=== PATIENT | female | born 1970 | race African-American/Black ===

== ENCOUNTER 2017-09-14 10:58 | Inpatient (IN) | payer OTHER ==
[2017-09-14 11:30] VITALS: BMI 23.0
--- NOTE | 2017-09-14 13:28 | HP ---
CIWA Score - CIWA Score Nausea/Vomitin Muscle Tremors: 3 Anxiety: 4-Mod. Anxious/Guarded Agitation: 0-Normal Activity Paroxysmal Sweats: No Perspiration Orientation: 0-Oriented Tacttile Disturbances: 3-Moderate Itch/Numb/Burn Auditory Disturbances: 2-Mild Harshness/Frighten Visual Disturbances: 2-Mild Sensitivity Headache: 0-None Present CIWA-Ar Total Score: 19 Admission ROS [facility] - HPI Chief Complaint: "I want to get my life together and have a better quality of life." Patient is here to Detox from Alcohol. Allergies/Adverse Reactions: Allergies Allergy/AdvReac Type Severity Reaction Status Date / Time No Known Allergies Allergy Verified 09/14/17 12:53 History of Present Illness: Patient is a 47 YO female here to Detox from Alcohol. This is patient's first Detox admission at [facility]. Patient has had a Detox admission at [facility] @ 2012. Longest Period of Sobriety in recent years: approx. 3 years (2012 - 2015). Exam Limitations: No Limitations - Ebola screening Have you traveled outside of the country in the last 21 days: No Have you had contact with anyone from an Ebola affected area: No Have you been sick,other than usual withdrawal symptoms: No Do you have a fever: No - Review of Systems Constitutional: Chills, Loss of Appetite, Malaise, Night Sweats, Changes in sleep, Unintentional Wgt. Loss (Approx. 10 lbs over last few months.) EENT: reports: Nose Congestion, Sinus Pressure Respiratory: reports: No Symptoms reported Cardiac: reports: Palpitations GI: reports: Diarrhea, Nausea, Poor Appetite, Vomiting, Indigestion (Heartburn, Occurs Rarely.), Abdominal cramping : reports: No Symptoms Reported Musculoskeletal: reports: Back Pain, Joint Pain, Joint Stiffness Integumentary: reports: No Symptoms Reported Neuro: reports: Numbness (Bilateral Feet, Bilateral Hands.), Tingling ( Bilateral Feet, Bilateral Hands.), Tremors Endocrine: reports: No Symptoms Reported Hematology: reports: Anemia (Iron-Deficiency type. No current meds.) Psychiatric: reports: Judgement Intact, Mood/Affect Appropiate, Orientated x3, Anxious, Depressed (No meds.) Other Systems: Reviewed and Negative Patient History - Patient Medical History Hx Anemia: Yes (Iron-Deficiency type; No current meds.) Hx Asthma: Yes (as a child) Hx Chronic Obstructive Pulmonary Disease (COPD): No Hx Cancer: No Hx Cardiac Disorders: No Hx Congestive Heart Failure: No Hx Hypertension: No (In past, not currently.) Hx Hypercholesterolemia: No Hx Pacemaker: No HX Cerebrovascular Accident: No Hx Seizures: No Hx Dementia: No Hx Diabetes: No Hx Gastrointestinal Disorders: Yes (History of Intestinal Polyps, History of Diverticulosis.) Hx Liver Disease: No Hx Genitourinary Disorders: No Hx Sexually Transmitted Disorders: No Hx Renal Disease (ESRD): No Hx Thyroid Disease: No Hx Human Immunodeficiency Virus (HIV): No (Negative History.) Hx Hepatitis C: No (Negative History.) Hx Depression: Yes (and Anxiety; No meds.) Hx Suicide Attempt: No (PATIENT DENIES CURRENT SI / HI.) Hx Bipolar Disorder: No Hx Schizophrenia: No Other Medical History: Sciatica (Left Side); Neuropathy, bialteral hands, feet, due to ETOH use. - Patient Surgical History Past Surgical History: No Hx Neurologic Surgery: No Hx Cataract Extraction: No Hx Cardiac Surgery: No Hx Lung Surgery: No Hx Breast Surgery: No Hx Breast Biopsy: No Hx Abdominal Surgery: No Hx Appendectomy: No Hx Cholecystectomy: No Hx Genitourinary Surgery: No Hx Section: No Hx Orthopedic Surgery: No Other Surgical History: DENIES. Anesthesia Reaction: No - PPD History Previous Implant?: Yes Documented Results: Negative w/o proof Implanted On Prior R Admission?: No PPD to be Administered?: Yes - Reproductive History Patient is a Female of Child Bearing Age (11 -55 yrs old): Yes Last Menstrual Period: 08/16/17 Patient : No - Smoking Cessation Smoking history: Current every day smoker Have you smoked in the past 12 months: Yes Aproximately how many cigarettes per day: 5 Cigars Per Day: 0 Hx Chewing Tobacco Use: No Initiated information on smoking cessation: Yes 'Breaking Loose' booklet given: 09/14/17 (GIVEN TO PATIENT.) - Substance & Tx. History Hx Alcohol Use: Yes Hx Substance Use: Yes Substance Use Type: Alcohol Hx Substance Use Treatment: Yes (Detox at [facility] ([place] @ 2013.) - Substances Abused Alcohol-whisky/beer Route: Oral Frequency: Daily Amount used: fifth/3 (22 oz.) Age of first use: 16 Date of Last Use: 09/14/17 Family Disease History - Family Disease History Family Disease History: Heart Disease: Grandparent (HTN; Thoracic Ca.), Father ( History of Aneurysms; HTN), Mother (HTN.), CA: Grandparent, Other: Father Admission Physical Exam [facility] - Vital Signs Vital Signs: Vital Signs - 24 hr 09/14/17 11:23 Temperature 98.1 F Pulse Rate 82 Respiratory 18 Rate Blood Pressure 133/89 - Physical General Appearance: Yes: No Apparent Distress, Nourished, Appropriately Dressed , Tremorous, Anxious, Other (Patient Ambulates with a Cane.) HEENTM: Yes: Hearing grossly Normal, Normocephalic, Normal Voice, ALEX, Pharynx Normal Respiratory: Yes: Chest Non-Tender, Lungs Clear, No Respiratory Distress, No Accessory Muscle Use Neck: Yes: No masses,lesions,Nodules, Supple, Trachea in good position Breast: Yes: Breast Exam Deferred Cardiology: Yes: Regular Rhythm, Regular Rate, S1, S2 Abdominal: Yes: Normal Bowel Sounds, Non Tender, Flat, Soft Genitourinary: Yes: Within Normal Limits Back: Yes: Decreased Range of Motion Musculoskeletal: Yes: Back pain, Joint Stiffness Extremities: Yes: Tremors Neurological: Yes: Fully Oriented, Alert, Normal Mood/Affect, Normal Response Integumentary: Yes: Normal Color, Dry, Warm Lymphatic: Yes: Within Normal Limits - Diagnostic (1) Alcohol dependence with uncomplicated withdrawal Current Visit: Yes Status: Acute (2) Nicotine dependence Current Visit: Yes Status: Chronic Qualifiers: Nicotine product type: cigarettes Substance use status: uncomplicated Qualified Code(s): F17.210 - Nicotine dependence, cigarettes, uncomplicated (3) Use of cane as ambulatory aid Current Visit: Yes Status: Chronic (4) History of iron deficiency anemia Current Visit: Yes Status: Suspected (5) History of hypertension Current Visit: Yes Status: Suspected (6) Neuropathy of both feet Current Visit: Yes Status: Chronic (7) Neuropathy of left hand Current Visit: Yes Status: Chronic (8) Neuropathy of right hand Current Visit: Yes Status: Chronic (9) Anxiety and depression Current Visit: Yes Status: Suspected Cleared for Admission [facility] - Detox or Rehab [facility] Level of Care: Medically Managed Detox Regimen/Protocol: Librium [facility] Breath Alcohol Content Breath Alcohol Content: 0 Urine Pregancy Test - Result Urine Test Results: Negative- NO Line Present Urine Drug Screen - Results Drug Screen Negative: Yes
[2017-09-14] MEDS ORDERED: MENTHOL/PHENOL 1 EACH UD MM PRN (13:55)
[2017-09-14] MEDS ORDERED: guaiFENesin/D-METHORPHAN HB 10 ML UNIT-DOSE CUPS PO PRN (13:55)
[2017-09-14] MEDS ORDERED: IBUPROFEN 400 MG TABLET (FP) PO PRN (13:55)
[2017-09-14] MEDS ORDERED: P-EPHED 60MG/TRIPROLIDI 2.5MG TABLET PO PRN (13:55)
[2017-09-14] MEDS ORDERED: MAG HYDROX/AL HYDROX/SIMETH 30 ML UNIT-DOSE CUP PO PRN (13:55)
[2017-09-14] MEDS ORDERED: LOPERAMIDE HCL 2 MG CAPSULE PO PRN (13:55)
[2017-09-14] MEDS ORDERED: chlordiazePOXIDE HCL 25 MG CAPSULE PO PRN (13:55)
[2017-09-14] MEDS ORDERED: MAGNESIUM HYDROX 2400MG/30ML ORAL SUSPENSION 30 ML CUP PO PRN (13:55)
[2017-09-14] MEDS ORDERED: MAGNESIUM CITRATE 300 ML BOTTLE PO PRN (13:55)
[2017-09-14] MEDS ORDERED: chlordiazePOXIDE HCL 25 MG CAPSULE PO ONE (15:00)
[2017-09-14] MEDS: chlordiazePOXIDE HCL 25 MG CAPSULE PO SCH ×2 (17:32→22:11)
[2017-09-14 18:18] LABS: HEMATOCRIT 38.2 % (32.4-45.2); HEMOGLOBIN 12.2 GM/dL (10.7-15.3); MCH 24.6 pg (25.7-33.7); MCHC 31.9 g/dl (32.0-36.0); MEAN CELL VOLUME 77.2 fl (80-96); MEAN PLT VOLUME 9.4 fl (7.5-11.1); PLATELET COUNT 204 K/MM3 (134-434); RBC 4.95 M/mm3 (3.60-5.2); RDW 13.4 % (11.6-15.6); WHITE BLOOD COUNT 5.2 K/mm3 (4.0-10.0)
[2017-09-14 18:52] LABS: ALBUMIN 3.9 g/dl (3.4-5.0); ANION GAP 4 (8-16); BLOOD UREA NITROGEN 9 mg/dL (7-18); CALCIUM 8.9 mg/dL (8.5-10.1); CHLORIDE 106 mmol/L (98-107); CO2 30 mmol/L (21-32); CREATININE 0.5 mg/dL (0.55-1.02); GLUCOSE,RANDOM 78 mg/dL (74-106); POTASSIUM 3.7 mmol/L (3.5-5.1); SGOT/AST 20 U/L (15-37); SGPT/ALT 19 U/L (12-78); SODIUM 140 mmol/L (136-145)
[2017-09-14 18:54] LABS: ALK PHOS 42 U/L (45-117); BILIRUBIN,TOTAL 0.4 mg/dL (0.2-1.0); TOT PROT 7.3 g/dl (6.4-8.2)
[2017-09-14] MEDS ORDERED: MELATONIN 5 MG TABLETS PO PRN (22:00)
[2017-09-14] MEDS: THIAMINE HCL 100 MG TABLET (FP) PO SCH (22:11)
[2017-09-15] MEDS: chlordiazePOXIDE HCL 25 MG CAPSULE PO SCH ×4 (05:23→22:23)
[2017-09-15] MEDS: PRENATAL VITAMINS W/ FOLIC ACID TABLET (FP) PO SCH (10:35)
--- NOTE | 2017-09-15 13:59 | PN ---
[facility] CIWA - CIWA Score Nausea/Vomitin Muscle Tremors: 2 Anxiety: 2 Agitation: 2 Paroxysmal Sweats: 2 Orientation: 0-Oriented Tacttile Disturbances: 1-Very Mild Itch/Numbness Auditory Disturbances: 1-Very Mild Visual Disturbances: 0-None Headache: 2-Mild CIWA-Ar Total Score: 14 [facility] Progress Note (SOAP) Subjective: Low back pain,drowsy and abdominal discomfort Objective: 09/15/17 13:59 Vital Signs - 8 hr 09/15/17 09/15/17 06:26 10:00 Temperature 98.4 F 97.9 F Pulse Rate 78 92 H Respiratory 18 18 Rate Blood Pressure 110/76 133/89 Laboratory Last Values WBC 5.2 K/mm3 (4.0-10.0) 09/14/17 12:00 RBC 4.95 M/mm3 (3.60-5.2) 09/14/17 12:00 Hgb 12.2 GM/dL (10.7-15.3) 09/14/17 12:00 Hct 38.2 % (32.4-45.2) 09/14/17 12:00 MCV 77.2 fl (80-96) L 09/14/17 12:00 MCH 24.6 pg (25.7-33.7) L 09/14/17 12:00 MCHC 31.9 g/dl (32.0-36.0) L 09/14/17 12:00 RDW 13.4 % (11.6-15.6) 09/14/17 12:00 Plt Count 204 K/MM3 (134-434) 09/14/17 12:00 MPV 9.4 fl (7.5-11.1) 09/14/17 12:00 Sodium 140 mmol/L (136-145) 09/14/17 12:00 Potassium 3.7 mmol/L (3.5-5.1) 09/14/17 12:00 Chloride 106 mmol/L (98-107) 09/14/17 12:00 Carbon Dioxide 30 mmol/L (21-32) 09/14/17 12:00 Anion Gap 4 (8-16) L 09/14/17 12:00 BUN 9 mg/dL (7-18) 09/14/17 12:00 Creatinine 0.5 mg/dL (0.55-1.02) L 09/14/17 12:00 Creat Clearance w eGFR > 60 (>60) 09/14/17 12:00 Random Glucose 78 mg/dL (74-106) 09/14/17 12:00 Calcium 8.9 mg/dL (8.5-10.1) 09/14/17 12:00 Total Bilirubin 0.4 mg/dL (0.2-1.0) 09/14/17 12:00 AST 20 U/L (15-37) 09/14/17 12:00 ALT 19 U/L (12-78) 09/14/17 12:00 Alkaline Phosphatase 42 U/L (45-117) L 09/14/17 12:00 Total Protein 7.3 g/dl (6.4-8.2) 09/14/17 12:00 Albumin 3.9 g/dl (3.4-5.0) 09/14/17 12:00 RPR Titer Nonreactive (NONREACTIVE) 09/14/17 12:00 Labs noted Assessment: 09/15/17 13:59 Withdrawal sx Plan: Continue detox
--- NOTE | 2017-09-15 14:40 | EKG ---
Test Reason : Blood Pressure : / mmHG Vent. Rate : 074 BPM Atrial Rate : 074 BPM P-R Int : 184 ms QRS Dur : 086 ms QT Int : 386 ms P-R-T Axes : 076 077 057 degrees QTc Int : 428 ms NORMAL SINUS RHYTHM POSSIBLE LEFT ATRIAL ENLARGEMENT BORDERLINE ECG NO PREVIOUS ECGS AVAILABLE Confirmed by MD Juvenal, Damien ([id number]) on 09/15/2017 2:39:54 PM Referred By: Confirmed By:Damien Sanford MD
[2017-09-15] MEDS: ACETAMINOPHEN 325 MG TABLET (FP) PO PRN (17:27)
[2017-09-15] MEDS: THIAMINE HCL 100 MG TABLET (FP) PO SCH (22:23)
[2017-09-16] MEDS: chlordiazePOXIDE HCL 25 MG CAPSULE PO SCH ×2 (05:58→10:24)
[2017-09-16] MEDS: PRENATAL VITAMINS W/ FOLIC ACID TABLET (FP) PO SCH (10:24)
--- NOTE | 2017-09-16 16:06 | PN ---
S CIWA - CIWA Score Nausea/Vomitin Muscle Tremors: 4-Moderate,w/Arms Extend Anxiety: 4-Mod. Anxious/Guarded Agitation: 4-Moderately Restless Paroxysmal Sweats: 3 Orientation: 0-Oriented Tacttile Disturbances: 1-Very Mild Itch/Numbness Auditory Disturbances: 0-None Visual Disturbances: 0-None Headache: 1-Very Mild CIWA-Ar Total Score: 20 [facility] Progress Note (SOAP) Subjective: Nausea, chills, sweating, oversleeping, requesting more food or ensure stating she is always hungry. Patient is requesting sturdier walker. Objective: 09/16/17 16:04 Last Vital Signs Temp Pulse Resp BP Pulse Ox 99.7 F H 101 H 18 148/93 09/16/17 13:18 09/16/17 13:18 09/16/17 13:18 09/16/17 13:18 Laboratory Tests 09/14/17 09/14/17 09/14/17 12:00 12:00 12:00 WBC 5.2 RBC 4.95 Hgb 12.2 Hct 38.2 MCV 77.2 L MCH 24.6 L MCHC 31.9 L RDW 13.4 Plt Count 204 MPV 9.4 Sodium 140 Potassium 3.7 Chloride 106 Carbon Dioxide 30 Anion Gap 4 L BUN 9 Creatinine 0.5 L Creat Clearance w eGFR > 60 Random Glucose 78 Calcium 8.9 Total Bilirubin 0.4 AST 20 ALT 19 Alkaline Phosphatase 42 L Total Protein 7.3 Albumin 3.9 RPR Titer Nonreactive Labs noted Assessment: 09/16/17 16:04 Withdrawal symptoms Plan: Continue detox Encouraged PO hydration (water), ensure 1 cup PO bid due to increased hunger
[2017-09-16] MEDS: chlordiazePOXIDE 5 MG CAPSULE PO SCH ×2 (17:37→22:16)
[2017-09-16] MEDS: ACETAMINOPHEN 325 MG TABLET (FP) PO PRN (22:16)
[2017-09-16] MEDS: THIAMINE HCL 100 MG TABLET (FP) PO SCH (22:16)
[2017-09-17] MEDS: chlordiazePOXIDE 5 MG CAPSULE PO SCH ×2 (06:04→10:41)
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
[2017-09-17] MEDS: PRENATAL VITAMINS W/ FOLIC ACID TABLET (FP) PO SCH (10:41)
[2017-09-17] MEDS: chlordiazePOXIDE HCL 10 MG CAPSULE PO SCH ×2 (18:24→22:15)
[2017-09-17] MEDS: THIAMINE HCL 100 MG TABLET (FP) PO SCH (22:14)
[2017-09-18] MEDS: chlordiazePOXIDE HCL 10 MG CAPSULE PO SCH ×2 (05:53→10:41)
--- NOTE | 2017-09-18 08:43 | DS ---
[facility] Detox Discharge Summary Admission Date: 09/14/17 Discharge Date: 09/18/17 - History Present History: Alcohol Dependence Additional Comments: 47 years old female admitted on 09/14/17 for alcohol withdrawal sx completed detox regimen tolerated well denies alcohol withdrawal sx acknowledged aftercare [facility] toward sobriety - Physical Exam Results Vital Signs: Vital Signs Temperature 98.1 F 09/18/17 06:08 Pulse Rate 78 09/18/17 06:08 Respiratory Rate 18 09/18/17 06:08 Blood Pressure 135/88 09/18/17 06:08 O2 Sat by Pulse Oximetry (%) Pertinent Admission Physical Exam Findings: withdrawal sx Vital Signs Temperature 98.1 F 09/18/17 06:08 Pulse Rate 78 09/18/17 06:08 Respiratory Rate 18 09/18/17 06:08 Blood Pressure 135/88 09/18/17 06:08 O2 Sat by Pulse Oximetry (%) Laboratory Last Values WBC 5.2 K/mm3 (4.0-10.0) 09/14/17 12:00 RBC 4.95 M/mm3 (3.60-5.2) 09/14/17 12:00 Hgb 12.2 GM/dL (10.7-15.3) 09/14/17 12:00 Hct 38.2 % (32.4-45.2) 09/14/17 12:00 MCV 77.2 fl (80-96) L 09/14/17 12:00 MCH 24.6 pg (25.7-33.7) L 09/14/17 12:00 MCHC 31.9 g/dl (32.0-36.0) L 09/14/17 12:00 RDW 13.4 % (11.6-15.6) 09/14/17 12:00 Plt Count 204 K/MM3 (134-434) 09/14/17 12:00 MPV 9.4 fl (7.5-11.1) 09/14/17 12:00 Sodium 140 mmol/L (136-145) 09/14/17 12:00 Potassium 3.7 mmol/L (3.5-5.1) 09/14/17 12:00 Chloride 106 mmol/L (98-107) 09/14/17 12:00 Carbon Dioxide 30 mmol/L (21-32) 09/14/17 12:00 Anion Gap 4 (8-16) L 09/14/17 12:00 BUN 9 mg/dL (7-18) 09/14/17 12:00 Creatinine 0.5 mg/dL (0.55-1.02) L 09/14/17 12:00 Creat Clearance w eGFR > 60 (>60) 09/14/17 12:00 Random Glucose 78 mg/dL (74-106) 09/14/17 12:00 Calcium 8.9 mg/dL (8.5-10.1) 09/14/17 12:00 Total Bilirubin 0.4 mg/dL (0.2-1.0) 09/14/17 12:00 AST 20 U/L (15-37) 09/14/17 12:00 ALT 19 U/L (12-78) 09/14/17 12:00 Alkaline Phosphatase 42 U/L (45-117) L 09/14/17 12:00 Total Protein 7.3 g/dl (6.4-8.2) 09/14/17 12:00 Albumin 3.9 g/dl (3.4-5.0) 09/14/17 12:00 RPR Titer Nonreactive (NONREACTIVE) 09/14/17 12:00 lab noted - Treatment Hospital Course: Detox Protocol Followed, Detoxed Safely, Responded well, Discharged Condition Good, Rehab Referral Accepted Patient has Accepted a Rehab Referral to[facility] - Medication Discharge Medications: Ambulatory Orders NK [No Known Home Medication] 09/14/17 - Diagnosis (1) Alcohol dependence with uncomplicated withdrawal Current Visit: Yes Status: Acute (2) Nicotine dependence Current Visit: Yes Status: Acute Qualifiers: Nicotine product type: cigarettes Substance use status: in withdrawal Qualified Code(s): F17.213 - Nicotine dependence, cigarettes, with withdrawal (3) Use of cane as ambulatory aid Current Visit: No Status: Chronic (4) History of hypertension Current Visit: Yes Status: Chronic - AMA Did Patient Leave Against Medical Advice: No
[2017-09-18] MEDS: PRENATAL VITAMINS W/ FOLIC ACID TABLET (FP) PO SCH (10:41)
[2017-09-18 14:08] VITALS: BP 134/75; PULSE 94; TEMP 99.3
[2017-09-18 15:02] LABS: URINE APPEARANCE CLOUDY; URINE BILIRUBIN NEGATIVE (<2.0 mg/dL); URINE COLOR LTYELLOW; URINE GLUCOSE (UA) NEGATIVE (NEGATIVE); URINE KETONE NEGATIVE (NEGATIVE); URINE NITRITE NEGATIVE (NEGATIVE); URINE PROTEIN NEGATIVE (NEGATIVE); URINE UROBILINOGEN NEGATIVE mg/dL (0.2-1.0)
[2017-09-18 15:04] LABS: URINE LEUK ESTERASE 1+ (NEGATIVE)
[2017-09-18 15:08] LABS: EPI CELLS RARE /HPF (FEW); URINE BACTERIA MANY /hpf (NONE SEEN); URINE MUCUS RARE
== END 2017-09-18 14:25 | disposition other institution (70) | DRG 775 ==
LOC: YASAS 10:58 → Y6N 14:05
PROVIDERS: ADMIT Surgery; ATTEND Surgery
PROC: HZ2ZZZZ Detoxification Services for Substance Abuse Treatment (ICD-10-PCS; principal; 2017-09-14)
DX: F10.230 Alcohol dependence with withdrawal, uncomplicated (principal); F17.213 Nicotine dependence, cigarettes, with withdrawal; F41.8 Other specified anxiety disorders; G62.9 Polyneuropathy, unspecified; R26.2 Difficulty in walking, not elsewhere classified; Z99.89 Dependence on other enabling machines and devices
CPT/HCPCS: 36415; 72220-TC-FY; 80053; 81003; 81015; 85027; 86593; 93005; 93010

== ENCOUNTER 2017-09-18 13:31 | Inpatient (IN) | payer OTHER ==
[2017-09-18 14:58] VITALS: BMI 23.5
[2017-09-18] MEDS ORDERED: MAGNESIUM CITRATE 300 ML BOTTLE PO PRN (15:04)
[2017-09-18] MEDS ORDERED: hydrOXYzine PAMOATE 50 MG CAPSULE (FP) PO PRN (15:04)
[2017-09-18] MEDS ORDERED: guaiFENesin/D-METHORPHAN HB 10 ML UNIT-DOSE CUPS PO PRN (15:04)
[2017-09-18] MEDS ORDERED: IBUPROFEN 400 MG TABLET (FP) PO PRN (15:04)
[2017-09-18] MEDS ORDERED: P-EPHED 60MG/TRIPROLIDI 2.5MG TABLET PO PRN (15:04)
[2017-09-18] MEDS ORDERED: MENTHOL/PHENOL 1 EACH UD MM PRN (15:04)
[2017-09-18] MEDS ORDERED: MAG HYDROX/AL HYDROX/SIMETH 30 ML UNIT-DOSE CUP PO PRN (15:04)
[2017-09-18] MEDS ORDERED: LOPERAMIDE HCL 2 MG CAPSULE PO PRN (15:04)
[2017-09-18] MEDS ORDERED: MAGNESIUM HYDROX 2400MG/30ML ORAL SUSPENSION 30 ML CUP PO PRN (15:04)
[2017-09-18] MEDS ORDERED: NICOTINE POLACRILEX 2 MG GUM BUC PRN (15:05)
--- NOTE | 2017-09-18 15:07 | HP ---
[facility] Rehab Assess/Revision - Admission History Admitted to Rehab from: [facility] [place] Date of Admission to Rehab: 09/18/17 - Vital signs Vital Signs: Vital Signs Period Temp Pulse Resp BP Sys/Rodriguez Pulse Ox Last 24 Hr 98.4 F-98.4 F 102-102 -18 115-115/82-82 - Findings Detox History & Physical reviewed: Yes Concur with findings: Yes Inpatient Rehab Admission - Initial Determination Are CD services needed?: Yes Free of communicable disease: Yes Not in need of hospitalization: Yes - Rehab Admission Criteria Previous failed treatment: Yes Poor recovery environment: Yes Comorbidities: Yes Lacks judgement: Yes Patient is meeting Inpatient Rehab admission criteria:: Yes
[2017-09-18] MEDS: THIAMINE HCL 100 MG TABLET (FP) PO SCH (21:14)
[2017-09-18] MEDS ORDERED: MELATONIN 5 MG TABLETS PO PRN (22:00)
[2017-09-19] MEDS: PRENATAL VITAMINS W/ FOLIC ACID TABLET (FP) PO SCH (09:56)
[2017-09-19] MEDS: NICOTINE 14 MG/24 HOURS TOPICAL PATCH TD SCH (09:56)
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
--- NOTE | 2017-09-19 12:48 | PN ---
[facility] Progress Note Note: Patient requesting Vitamin C as he takes Vitamin C over the counter at home. Vitamin C 250mg daily ordered.
[2017-09-19] MEDS: THIAMINE HCL 100 MG TABLET (FP) PO SCH (21:21)
[2017-09-19] MEDS ORDERED: PT OWN MED DRAWER 7, Y5N ONE (21:56)
[2017-09-20] MEDS: NICOTINE 14 MG/24 HOURS TOPICAL PATCH TD SCH (10:10)
[2017-09-20] MEDS: ASCORBIC ACID 500 MG TABLET (FP) PO SCH (10:10)
[2017-09-20] MEDS: PRENATAL VITAMINS W/ FOLIC ACID TABLET (FP) PO SCH (10:10)
--- NOTE | 2017-09-20 13:09 | PN ---
[facility] Progress Note Note: c/o of dry skin. Vital Signs Temperature 98.1 F 09/20/17 07:18 Pulse Rate 102 H 09/20/17 07:18 Respiratory Rate 18 09/20/17 07:18 Blood Pressure 123/83 09/20/17 07:18 O2 Sat by Pulse Oximetry (%) Increase fluids aveno soap eucerin cream top bid continue to monitor
[2017-09-20] MEDS: COLLOIDAL OATMEAL 1 BAR EACH TP PRN (18:31)
[2017-09-20] MEDS: MINERAL OIL/PETROLAT/WATER TOPICAL CREAM 113 GM JAR TP SCH (21:30)
[2017-09-20] MEDS: THIAMINE HCL 100 MG TABLET (FP) PO SCH (21:30)
[2017-09-21] MEDS: PRENATAL VITAMINS W/ FOLIC ACID TABLET (FP) PO SCH (10:07)
[2017-09-21] MEDS: ASCORBIC ACID 500 MG TABLET (FP) PO SCH (10:07)
[2017-09-21] MEDS: NICOTINE 14 MG/24 HOURS TOPICAL PATCH TD SCH (11:06)
[2017-09-21] MEDS: MINERAL OIL/PETROLAT/WATER TOPICAL CREAM 113 GM JAR TP SCH ×2 (11:06→21:45)
[2017-09-21] MEDS ORDERED: PT OWN MED DRAWER 7, Y5N ONE (19:29)
[2017-09-21] MEDS: THIAMINE HCL 100 MG TABLET (FP) PO SCH (21:43)
[2017-09-22] MEDS: MINERAL OIL/PETROLAT/WATER TOPICAL CREAM 113 GM JAR TP SCH ×2 (10:03→21:30)
[2017-09-22] MEDS: NICOTINE 14 MG/24 HOURS TOPICAL PATCH TD SCH (10:03)
[2017-09-22] MEDS: PRENATAL VITAMINS W/ FOLIC ACID TABLET (FP) PO SCH (10:03)
[2017-09-22] MEDS: ASCORBIC ACID 500 MG TABLET (FP) PO SCH (10:04)
[2017-09-22] MEDS: THIAMINE HCL 100 MG TABLET (FP) PO SCH (21:29)
[2017-09-23] MEDS: NICOTINE 14 MG/24 HOURS TOPICAL PATCH TD SCH (10:08)
[2017-09-23] MEDS: ASCORBIC ACID 500 MG TABLET (FP) PO SCH (10:08)
[2017-09-23] MEDS: PRENATAL VITAMINS W/ FOLIC ACID TABLET (FP) PO SCH (10:10)
[2017-09-23] MEDS: MINERAL OIL/PETROLAT/WATER TOPICAL CREAM 113 GM JAR TP SCH ×2 (10:11→21:22)
[2017-09-23] MEDS: THIAMINE HCL 100 MG TABLET (FP) PO SCH (21:21)
[2017-09-24] MEDS: MINERAL OIL/PETROLAT/WATER TOPICAL CREAM 113 GM JAR TP SCH ×2 (09:59→21:20)
[2017-09-24] MEDS: ASCORBIC ACID 500 MG TABLET (FP) PO SCH (09:59)
[2017-09-24] MEDS: PRENATAL VITAMINS W/ FOLIC ACID TABLET (FP) PO SCH (09:59)
[2017-09-24] MEDS: NICOTINE 14 MG/24 HOURS TOPICAL PATCH TD SCH (10:01)
[2017-09-24] MEDS: THIAMINE HCL 100 MG TABLET (FP) PO SCH (21:20)
[2017-09-25] MEDS: ASCORBIC ACID 500 MG TABLET (FP) PO SCH (10:18)
[2017-09-25] MEDS: PRENATAL VITAMINS W/ FOLIC ACID TABLET (FP) PO SCH (10:19)
[2017-09-25] MEDS: MINERAL OIL/PETROLAT/WATER TOPICAL CREAM 113 GM JAR TP SCH ×2 (10:19→21:13)
[2017-09-25] MEDS: NICOTINE 14 MG/24 HOURS TOPICAL PATCH TD SCH (10:19)
[2017-09-25] MEDS: THIAMINE HCL 100 MG TABLET (FP) PO SCH (21:13)
[2017-09-26] MEDS: MINERAL OIL/PETROLAT/WATER TOPICAL CREAM 113 GM JAR TP SCH ×2 (10:08→21:21)
[2017-09-26] MEDS: ASCORBIC ACID 500 MG TABLET (FP) PO SCH (10:09)
[2017-09-26] MEDS: PRENATAL VITAMINS W/ FOLIC ACID TABLET (FP) PO SCH (10:09)
[2017-09-26] MEDS: NICOTINE 14 MG/24 HOURS TOPICAL PATCH TD SCH (10:09)
[2017-09-26] MEDS: THIAMINE HCL 100 MG TABLET (FP) PO SCH (21:21)
[2017-09-27] MEDS: COLLOIDAL OATMEAL 1 BAR EACH TP PRN (10:02)
[2017-09-27] MEDS: PRENATAL VITAMINS W/ FOLIC ACID TABLET (FP) PO SCH (10:03)
[2017-09-27] MEDS: ASCORBIC ACID 500 MG TABLET (FP) PO SCH (10:03)
[2017-09-27] MEDS: MINERAL OIL/PETROLAT/WATER TOPICAL CREAM 113 GM JAR TP SCH ×2 (10:05→21:20)
[2017-09-27] MEDS: NICOTINE 14 MG/24 HOURS TOPICAL PATCH TD SCH (10:05)
[2017-09-27] MEDS: THIAMINE HCL 100 MG TABLET (FP) PO SCH (21:19)
[2017-09-27] MEDS: ACETAMINOPHEN 325 MG TABLET (FP) PO PRN (21:19)
[2017-09-28] MEDS ORDERED: PT OWN MED DRAWER 7, Y5N ONE (08:32)
[2017-09-28] MEDS: PRENATAL VITAMINS W/ FOLIC ACID TABLET (FP) PO SCH (10:18)
[2017-09-28] MEDS: ASCORBIC ACID 500 MG TABLET (FP) PO SCH (10:18)
[2017-09-28] MEDS: NICOTINE 14 MG/24 HOURS TOPICAL PATCH TD SCH (10:19)
[2017-09-28] MEDS: MINERAL OIL/PETROLAT/WATER TOPICAL CREAM 113 GM JAR TP SCH ×2 (10:19→21:25)
[2017-09-28] MEDS: THIAMINE HCL 100 MG TABLET (FP) PO SCH (21:25)
[2017-09-29] MEDS: NICOTINE 14 MG/24 HOURS TOPICAL PATCH TD SCH (09:42)
[2017-09-29] MEDS: PRENATAL VITAMINS W/ FOLIC ACID TABLET (FP) PO SCH (09:43)
[2017-09-29] MEDS: ASCORBIC ACID 500 MG TABLET (FP) PO SCH (09:43)
[2017-09-29] MEDS: MINERAL OIL/PETROLAT/WATER TOPICAL CREAM 113 GM JAR TP SCH ×2 (09:49→21:38)
[2017-09-29] MEDS: ACETAMINOPHEN 325 MG TABLET (FP) PO PRN (19:54)
[2017-09-29] MEDS: THIAMINE HCL 100 MG TABLET (FP) PO SCH (21:38)
[2017-09-30] MEDS: NICOTINE 14 MG/24 HOURS TOPICAL PATCH TD SCH (09:53)
[2017-09-30] MEDS: PRENATAL VITAMINS W/ FOLIC ACID TABLET (FP) PO SCH (09:54)
[2017-09-30] MEDS: ASCORBIC ACID 500 MG TABLET (FP) PO SCH (09:54)
[2017-09-30] MEDS: MINERAL OIL/PETROLAT/WATER TOPICAL CREAM 113 GM JAR TP SCH ×2 (09:55→21:10)
[2017-09-30] MEDS: THIAMINE HCL 100 MG TABLET (FP) PO SCH (21:10)
[2017-10-01 07:04] VITALS: BP 131/89; PULSE 98; TEMP 98
[2017-10-01] MEDS ORDERED: PT OWN MED DRAWER 7, Y5N ONE (08:57)
--- NOTE | 2017-10-01 13:29 | PN ---
Psychiatric Progress Note Vital Signs: Vital Signs Period Temp Pulse Resp BP Sys/Rodriguez Pulse Ox Last 24 Hr 98.0 F 98 16-18 131/89 Date of Session: 10/01/17 Chief Complaint:: Discharge visit HPI: Patient addressed alcohol deprendence comorbid with Alcohol induced mood disorder. ROS: Significant for HTN,Anemia,Neuropathy. Current Side Effect: No Lab tests ordered: No Lab tests reviewed: Yes Provider note:: Patient completed this program today.She has met her treatment goals and will continue to address her issues in long-term [facility] program.patient identifies areas of difficulties.she focuses on insights gained in treatment includong importance of changing attitude and ways she plans to utilize support system and coping skills to maintain recovery. Patient is stable for discharge today. Total face to face time:: 30 Mental Status Exam - Mental Status Exam Alert and Oriented to: Time, Place, Person Cognitive Function: Grossly Intact Patient Appearance: Well Groomed Mood: Hopeful, Euthymic Affect: Appropriate, Mood Congruent Patient Behavior: Cooperative Speech Pattern: Clear Voice Loudness: Normal Thought Process: Goal Oriented Thought Disorder: Not Present Hallucinations: Denies Suicidal Ideation: Denies Homicidal Ideation: Denies Insight/Judgement: Good Sleep: Fair Appetite: Good Muscle strength/Tone: Normal Gait/Station: Normal Psychiatric Treatment Plan - Problem List (2) Nicotine dependence Qualifiers:
== END 2017-10-01 08:38 | disposition home or self-care (01) | DRG 772 ==
LOC: YASAS 13:31 → Y3E 13:33
PROVIDERS: ADMIT Psychiatry & Neurology Psychiatry; ATTEND Psychiatry & Neurology Psychiatry
PROC: HZ42ZZZ Group Counseling for Substance Abuse Treatment, Cognitive-Behavioral (ICD-10-PCS; principal; 2017-09-18)
DX: F10.20 Alcohol dependence, uncomplicated (principal); F17.210 Nicotine dependence, cigarettes, uncomplicated; F19.24 Other psychoactive substance dependence with psychoactive substance-induced mood disorder; G62.9 Polyneuropathy, unspecified; I10 Essential (primary) hypertension; D50.9 Iron deficiency anemia, unspecified; R26.89 Other abnormalities of gait and mobility; Z99.89 Dependence on other enabling machines and devices

== ENCOUNTER 2020-07-22 11:52 | Inpatient (IN) | payer OTHER ==
[2020-07-22 12:38] VITALS: BMI 28.2
[2020-07-22] MEDS ORDERED: ACETAMINOPHEN 325 MG TABLET (FP) PO ONE (13:05)
[2020-07-22] MEDS ORDERED: ACETAMINOPHEN 325 MG TABLET (FP) ONE (13:27)
[2020-07-22] MEDS ORDERED: morphine CARPU-JECT 4 MG/1 ML DISP.SYRIN IVPUSH ONE (15:52)
[2020-07-22] MEDS ORDERED: LIDOCAINE HCL 1%, 10 MG/ML (50 mL VIAL) INF ONE (15:52)
[2020-07-22] MEDS ORDERED: LIDOCAINE HCL 1%, 10 MG/ML (20ML VIAL) ONE (16:00)
[2020-07-22] MEDS ORDERED: morphine SULFATE 4 MG/ML VIAL ONE (16:01)
[2020-07-22 16:56] LABS: BASO % 0.4 % (0-2.0); HEMATOCRIT 35.4 % (32.4-45.2); LYMPH % 26.4 % (8-40); MCH 23.3 pg (25.7-33.7); MCHC 31.2 g/dl (32.0-36.0); MEAN CELL VOLUME 74.7 fl (80-96); MONO % 11.5 % (3.8-10.2); NEUT % 60.7 % (42.8-82.8); PLATELET COUNT 182 K/MM3 (134-434); RBC 4.73 M/mm3 (3.60-5.2); WHITE BLOOD COUNT 4.7 K/mm3 (4.0-10.0)
[2020-07-22 17:07] LABS: INR 0.99 (0.83-1.09); PROTHROMBIN TIME (PATIENT) 12.2 SEC (9.7-13.0)
[2020-07-22 17:09] LABS: ACTIVATED PTT 28.6 SECONDS (25.2-36.5)
[2020-07-22 17:12] LABS: CALCIUM 9.1 mg/dL (8.5-10.1)
[2020-07-22 17:13] LABS: ALBUMIN 3.5 g/dl (3.4-5.0); BLOOD UREA NITROGEN 12.6 mg/dL (7-18)
[2020-07-22 17:16] LABS: CREATININE 0.5 mg/dL (0.55-1.3)
[2020-07-22 17:17] LABS: BILIRUBIN,TOTAL 0.7 mg/dL (0.2-1)
[2020-07-22 17:18] LABS: TOT PROT 7.8 g/dl (6.4-8.2)
[2020-07-22] MEDS ORDERED: ACETAMINOPHEN 325 MG TABLET (FP) PO PRN (17:41)
[2020-07-22 20:00] LABS: EPI CELLS >36 /uL (0-25.1); HYALINE CASTS 8 /uL (0-3.1); URINE APPEARANCE CLOUDY; URINE BACTERIA 132 /uL (0-1359); URINE BILIRUBIN NEGATIVE (NEGATIVE); URINE COLOR DK YELLOW; URINE GLUCOSE (UA) NEGATIVE (NEGATIVE); URINE KETONE 2+ (NEGATIVE); URINE LEUK ESTERASE NEGATIVE (NEGATIVE); URINE NITRITE NEGATIVE (NEGATIVE); URINE PROTEIN 1+ (NEGATIVE); URINE WBC 13 /uL (0-25.8)
[2020-07-22 20:02] LABS: URINE RBC 26.5 /uL (0-23.9)
[2020-07-22] MEDS ORDERED: HEPARIN NA (PORCINE) 5,000 UNITS/ML 1ML VIAL ONE (22:02)
[2020-07-22] MEDS: HEPARIN NA (PORCINE) 5,000 UNITS/ML 1ML VIAL SQ SCH (22:52)
[2020-07-23 06:38] LABS: HEMATOCRIT 33.6 % (32.4-45.2); HEMOGLOBIN 10.6 GM/dL (10.7-15.3); INR 1.03 (0.83-1.09); MCH 23.6 pg (25.7-33.7); MCHC 31.6 g/dl (32.0-36.0); MEAN CELL VOLUME 74.8 fl (80-96); MEAN PLT VOLUME 8.5 fl (7.5-11.1); PLATELET COUNT 171 K/MM3 (134-434); PROTHROMBIN TIME (PATIENT) 12.7 SEC (9.7-13.0); RBC 4.49 M/mm3 (3.60-5.2); RDW 14.8 % (11.6-15.6); WHITE BLOOD COUNT 4.7 K/mm3 (4.0-10.0)
[2020-07-23 06:51] LABS: POTASSIUM 3.4 mmol/L (3.5-5.1)
[2020-07-23 06:57] LABS: BLOOD UREA NITROGEN 11.7 mg/dL (7-18); CALCIUM 8.6 mg/dL (8.5-10.1); MAGNESIUM 2.1 mg/dL (1.8-2.4)
[2020-07-23 07:01] LABS: CREATININE 0.5 mg/dL (0.55-1.3)
[2020-07-23] MEDS: HEPARIN NA (PORCINE) 5,000 UNITS/ML 1ML VIAL SQ SCH (07:04)
[2020-07-23] MEDS ORDERED: PROPOFOL 20 ML ONE (07:37)
[2020-07-23] MEDS ORDERED: MIDAZOLAM HCL 2 MG/2 ML SINGLE DOSE VIAL ONE ×2 (07:37)
[2020-07-23] MEDS ORDERED: POTASSIUM CHLORIDE TABS 20 MEQ TABLET.ER (FP) PO ONE ×4 (07:45→13:32)
[2020-07-23] MEDS ORDERED: BUPIVACAINE HCL 50 ML ONE (08:23)
[2020-07-23] MEDS ORDERED: ceFAZolin SODIUM 1 GM VIAL IVPB ONE (08:31)
[2020-07-23] MEDS ORDERED: ceFAZolin SODIUM 1 GM VIAL ONE (08:40)
[2020-07-23] MEDS ORDERED: ONDANSETRON 4 MG/2 ML VIAL ONE (08:40)
[2020-07-23] MEDS ORDERED: KETOROLAC TROMETHAMINE 30 MG/1 ML VIAL ONE (08:40)
[2020-07-23] MEDS ORDERED: DEXAMETHASONE SOD PHOSPHATE 4 MG/1 ML VIAL ONE (08:40)
[2020-07-23] MEDS ORDERED: oxyCODONE HCL 5 MG TABLET PO PRN (09:33)
[2020-07-23] MEDS ORDERED: LACTATED RINGERS SOLUTION 1,000 ML IV SCH (09:45)
[2020-07-23] MEDS ORDERED: ONDANSETRON 4 MG/2 ML VIAL IVPUSH PRN (09:46)
[2020-07-23] MEDS ORDERED: ACETAMINOPHEN 1000 MG/100 ML VIAL (NON FORMULARY) IVPB ONE ×2 (09:47→10:28)
[2020-07-23] MEDS ORDERED: ACETAMINOPHEN INJECTION 100 ML IVPB ONE (10:23)
[2020-07-23] MEDS ORDERED: oxyCODONE HCL 5 MG TABLET ONE (13:49)
[2020-07-23] MEDS ORDERED: oxyCODONE HCL 5 MG TABLET PO ONE (13:50)
[2020-07-23] MEDS: LACTATED RINGERS SOLUTION 1,000 ML IV SCH (15:43)
[2020-07-23] MEDS: CEFAZOLIN 2 GM/D5W 2 GM/50 ML ML IVPB SCH (15:43)
[2020-07-23] MEDS ORDERED: CEFAZOLIN 2 GM/D5W 2 GM/50 ML ML IVPB SCH (16:00)
[2020-07-23] MEDS: oxyCODONE HCL 5 MG TABLET PO PRN ×2 (18:23→22:20)
[2020-07-23] MEDS: ACETAMINOPHEN 325 MG TABLET (FP) PO PRN ×2 (18:24→22:21)
[2020-07-23] MEDS ORDERED: morphine SULFATE 4 MG/ML VIAL IVPUSH ONE (22:51)
[2020-07-24] MEDS: CEFAZOLIN 2 GM/D5W 2 GM/50 ML ML IVPB SCH (00:37)
[2020-07-24] MEDS: oxyCODONE HCL 5 MG TABLET PO PRN ×4 (02:55→21:46)
[2020-07-24] MEDS: ACETAMINOPHEN 325 MG TABLET (FP) PO PRN ×4 (02:56→21:46)
[2020-07-24] MEDS: LACTATED RINGERS SOLUTION 1,000 ML IV SCH ×2 (06:57→15:41)
[2020-07-24 09:06] LABS: HEMATOCRIT 31.1 % (32.4-45.2); HEMOGLOBIN 9.9 GM/dL (10.7-15.3); MCH 23.8 pg (25.7-33.7); MCHC 31.8 g/dl (32.0-36.0); MEAN CELL VOLUME 74.9 fl (80-96); MEAN PLT VOLUME 8.7 fl (7.5-11.1); PLATELET COUNT 162 K/MM3 (134-434); RBC 4.15 M/mm3 (3.60-5.2); RDW 14.7 % (11.6-15.6)
[2020-07-24 10:44] LABS: ALBUMIN 2.7 g/dl (3.4-5.0); BILIRUBIN,TOTAL 0.5 mg/dL (0.2-1); BLOOD UREA NITROGEN 8.2 mg/dL (7-18); CALCIUM 8.5 mg/dL (8.5-10.1); CREATININE 0.4 mg/dL (0.55-1.3); POTASSIUM 4.1 mmol/L (3.5-5.1)
[2020-07-24] MEDS ORDERED: DOCUSATE SODIUM 100 MG CAPSULE (FP) PO PRN (19:01)
[2020-07-24] MEDS: POLYETHYLENE GLYCOL 3350 119 GM BTL PO SCH (20:14)
[2020-07-24] MEDS: SENNOSIDES 8.6MG TABLET (FP) PO SCH (21:46)
[2020-07-25] MEDS: oxyCODONE HCL 5 MG TABLET PO PRN (03:30)
[2020-07-25] MEDS: ACETAMINOPHEN 325 MG TABLET (FP) PO PRN (03:31)
[2020-07-25 08:54] LABS: BASO % 0.2 % (0-2.0); EOS % 1.4 % (0-4.5); HEMATOCRIT 32.3 % (32.4-45.2); HEMOGLOBIN 10.2 GM/dL (10.7-15.3); LYMPH % 32.1 % (8-40); MCH 23.7 pg (25.7-33.7); MCHC 31.6 g/dl (32.0-36.0); MEAN PLT VOLUME 8.6 fl (7.5-11.1); MONO % 9.1 % (3.8-10.2); NEUT % 57.2 % (42.8-82.8); PLATELET COUNT 179 K/MM3 (134-434); RBC 4.31 M/mm3 (3.60-5.2); RDW 14.6 % (11.6-15.6); WHITE BLOOD COUNT 7.4 K/mm3 (4.0-10.0)
[2020-07-25] MEDS: POLYETHYLENE GLYCOL 3350 119 GM BTL PO SCH (09:19)
[2020-07-25 09:28] LABS: POTASSIUM 3.7 mmol/L (3.5-5.1)
[2020-07-25 09:33] LABS: CALCIUM 8.3 mg/dL (8.5-10.1)
[2020-07-25 09:34] LABS: ALBUMIN 2.6 g/dl (3.4-5.0); BLOOD UREA NITROGEN 5.7 mg/dL (7-18)
[2020-07-25 09:36] LABS: CREATININE 0.4 mg/dL (0.55-1.3)
[2020-07-25 09:38] LABS: BILIRUBIN,TOTAL 0.5 mg/dL (0.2-1); TOT PROT 6.2 g/dl (6.4-8.2)
[2020-07-25] MEDS: SENNOSIDES 8.6MG TABLET (FP) PO SCH (21:45)
[2020-07-26] MEDS: POLYETHYLENE GLYCOL 3350 119 GM BTL PO SCH (09:21)
[2020-07-26] MEDS: oxyCODONE HCL 5 MG TABLET PO PRN (09:22)
[2020-07-26] MEDS: ACETAMINOPHEN 325 MG TABLET (FP) PO PRN (14:33)
[2020-07-26] MEDS: SENNOSIDES 8.6MG TABLET (FP) PO SCH (22:15)
[2020-07-27] MEDS: POLYETHYLENE GLYCOL 3350 119 GM BTL PO SCH (09:22)
[2020-07-27 10:08] LABS: BASO % 0.4 % (0-2.0); EOS % 1.7 % (0-4.5); HEMATOCRIT 33.4 % (32.4-45.2); HEMOGLOBIN 10.7 GM/dL (10.7-15.3); MCH 23.8 pg (25.7-33.7); MCHC 32.1 g/dl (32.0-36.0); MEAN CELL VOLUME 74.1 fl (80-96); MEAN PLT VOLUME 8.1 fl (7.5-11.1); MONO % 8.9 % (3.8-10.2); PLATELET COUNT 254 K/MM3 (134-434); RDW 14.3 % (11.6-15.6); WHITE BLOOD COUNT 6.9 K/mm3 (4.0-10.0)
[2020-07-27 10:25] LABS: POTASSIUM 3.3 mmol/L (3.5-5.1)
[2020-07-27 10:26] LABS: CALCIUM 9.3 mg/dL (8.5-10.1)
[2020-07-27 10:30] LABS: CREATININE 0.5 mg/dL (0.55-1.3); IRON SERUM 28 ug/dL (50-175)
[2020-07-27 10:31] LABS: TOTAL IRON BINDING CAPACITY 329 ug/dL (250-450)
[2020-07-27] MEDS ORDERED: POTASSIUM CHLORIDE ORAL LIQUID 20 MEQ/15 ML PO ONE (11:00)
[2020-07-27] MEDS ORDERED: IRON SUCROSE INJECTION 300 MG in SODIUM CHLORIDE 235 ML IVPB ONE (14:00)
[2020-07-27] MEDS: ENOXAPARIN NA (PORCINE) 40 MG/0.4 ML DISP.SYRIN SQ SCH (15:23)
[2020-07-27] MEDS: FERROUS SO4 325 MG TABLET (FP) PO SCH (17:02)
[2020-07-27] MEDS: SENNOSIDES 8.6MG TABLET (FP) PO SCH (21:28)
[2020-07-28] MEDS: FERROUS SO4 325 MG TABLET (FP) PO SCH ×2 (08:30→17:54)
[2020-07-28] MEDS: POLYETHYLENE GLYCOL 3350 119 GM BTL PO SCH (09:49)
[2020-07-28] MEDS: ENOXAPARIN NA (PORCINE) 40 MG/0.4 ML DISP.SYRIN SQ SCH (09:51)
[2020-07-28] MEDS ORDERED: MULTIVITAMINS (DAILY MVI) TABLET (FP) PO SCH (10:00)
[2020-07-28] MEDS ORDERED: ASCORBIC ACID 500 MG TABLET (FP) PO SCH (10:00)
[2020-07-28 14:11] VITALS: BP 116/81; PULSE 94; TEMP 98.3
== END 2020-07-28 20:26 | DRG 313 ==
LOC: JER 11:52 → JERBED 17:24 → J6S 07-23 14:33
PROVIDERS: ADMIT Student in an Organized Health Care Education/Training Program; ATTEND Internal Medicine
PROC: 0QSJXZZ Reposition Right Fibula, External Approach (ICD-10-PCS; 2020-07-22)
PROC: 0QSJ04Z Reposition Right Fibula with Internal Fixation Device, Open Approach (ICD-10-PCS; principal; 2020-07-23 08:00)
DX: S82.451A Displaced comminuted fracture of shaft of right fibula, initial encounter for closed fracture (principal); D50.0 Iron deficiency anemia secondary to blood loss (chronic); M25.471 Effusion, right ankle; M21.372 Foot drop, left foot; M21.371 Foot drop, right foot; G62.9 Polyneuropathy, unspecified; I10 Essential (primary) hypertension; E78.5 Hyperlipidemia, unspecified; M81.0 Age-related osteoporosis without current pathological fracture; J95.89 Other postprocedural complications and disorders of respiratory system, not elsewhere classified; J98.11 Atelectasis; Y83.8 Other surgical procedures as the cause of abnormal reaction of the patient, or of later complication, without mention of misadventure at the time of the procedure; W18.30XA Fall on same level, unspecified, initial encounter; Y92.098 Other place in other non-institutional residence as the place of occurrence of the external cause
CPT/HCPCS: 36415; 71045-TC-FY; 73590-TC-RT-FY; 73610-TC-RT-FY; 73630-TC-RT-FY; 76000-TC-FY; 80048; 80053; 81003; 82306; 82728; 83540; 83550; 83735; 84100; 84443; 84703; 85025; 85027; 85610; 85730; 86803; 86850; 86900; 86901; 93005; 93010; 94010; 94760; 97116-GP; 97161-GP; 99285-25; C9803; J0131; U0003